=== PATIENT | female | born 1980 | race Two or more races ===

== ENCOUNTER 2018-11-24 14:45 | Emergency (ER) | payer MEDICAID ==
[~2018-11-24] VITALS: Ht 160 cm; Wt 49.9 kg
--- NOTE | 2018-11-24 15:25 | NUR ---
IRREGULAR HEART RATE FROM MONITOR. DENIES CHEST PAIN, SOB, DIZZINESS, N/V, ARM/JAW PAIN AT THIS TIME. PT SEEN & EVAL'D BY ANGELINA MARQUEZ & WILL CONT TO MONITOR.
[2018-11-24 16:52] VITALS: BP 138/84
--- NOTE | 2018-11-24 16:52 | NUR ---
Patient discharged to home in stable condition. Written and verbal after care instructions given. Patient verbalizes understanding of instruction.
== END 2018-11-24 16:53 | disposition home or self-care (01) ==
LOC: ER 14:45
DX: R00.2 Palpitations (principal)

== ENCOUNTER 2018-11-27 15:10 | Emergency (ER) | payer MEDICAID ==
[~2018-11-27] VITALS: Ht 160 cm; Wt 52.2 kg
[2018-11-27 16:12] VITALS: BP 126/77
[2018-11-27] MEDS ORDERED: KETOROLAC TROMETHAMINE INJ 30 MG/ML VIAL ONE (16:47)
[2018-11-27] MEDS ORDERED: CYCLOBENZAPRINE 10 MG TABLET ONE (16:47)
[2018-11-27] MEDS ORDERED: CYCLOBENZAPRINE 10 MG TABLET PO ONE (17:00)
[2018-11-27] MEDS ORDERED: KETOROLAC TROMETHAMINE INJ 30 MG/ML VIAL IM ONE (17:00)
== END 2018-11-27 19:52 | disposition home or self-care (01) ==
LOC: ER 15:13
DX: M62.838 Other muscle spasm (principal); V49.49XA Driver injured in collision with other motor vehicles in traffic accident, initial encounter; Y93.89 Activity, other specified; Y92.410 Unspecified street and highway as the place of occurrence of the external cause; Y99.8 Other external cause status
CPT/HCPCS: 72050; 96372; 99283; J1885